=== PATIENT | male | born 1990 | race Two or more races ===

== ENCOUNTER 2017-06-23 12:44 | Emergency (ER) | payer OTHER ==
[2017-06-23 13:02] VITALS: BP 112/67; PULSE 83; TEMP 98.2; BMI 31.1
[2017-06-23] MEDS ORDERED: RANITIDINE HCL 150 MG TABLET (FP) PO ONE (13:43)
[2017-06-23] MEDS ORDERED: DEXAMETHASONE SOD PHOSPHATE 10 MG/1 ML VIAL IM ONE (13:43)
[2017-06-23] MEDS ORDERED: diphenhydrAMINE HCL 25 MG CAPSULE (FP) PO ONE ×2 (13:43→13:48)
--- NOTE | 2017-06-23 13:43 | PDOC ---
History of Present Illness - General Chief Complaint: Allergic Reaction Stated Complaint: ALLERGIC RXN Time Seen by Provider: 06/23/17 13:14 History Source: Patient Exam Limitations: No Limitations - History of Present Illness Initial Comments: CHIEF COMPLAINT: 27 y/o afebrile male with no significant PMH c/o itchy, red back s/p exposure to dirty water. HISTORY OF PRESENT ILLNESS: The patient states he was working about 3 hours ago and got splashed by dirty pond water on the back of his head and neck. He states that area immediately became itchy and his mouth started to tingle. He states since then the symptoms have improved but are still present. He denies difficulty breathing, swelling of tongue, inability to handle his own saliva. Vital signs on arrival are notable for pulse ox of 96% on RA. REVIEW OF SYSTEMS: GENERAL/CONSTITUTIONAL: No fever/chills. No weakness. No weight change. HEAD, EYES, EARS, NOSE AND THROAT: No change in vision. No ear pain or discharge. No sore throat. +tingling mouth. CARDIOVASCULAR: No chest pain or shortness of breath. RESPIRATORY: No cough, wheezing, or hemoptysis. GASTROINTESTINAL: No abd pain, nausea, vomiting, diarrhea. GENITOURINARY: No dysuria, frequency, or change in urination. MUSCULOSKELETAL: No joint or muscle swelling or pain. No neck or back pain. SKIN: +red itchy neck and back of head. NEUROLOGIC: No headache, vertigo, loss of consciousness, or loss of sensation. PHYSICAL EXAM: GENERAL: The patient is awake, alert, and fully oriented, in no acute distress. He is well appearing and ambulatory. HEAD: Normal with no signs of trauma. ENT: Pupils equal, round and reactive to light, extraocular movements intact, sclera anicteric, conjunctiva clear. No swelling to lips or tongue. No angioedema. Pt can handle his own saliva without difficulty. No posterior pharyngeal erythema or edema. Uvula midline. No soft/hard palate deformities. LUNGS: Clear to auscultation bilaterally. Normal excursion. No respiratory distress or use of accessory muscles. CV: RRR, S1/S2, no MRG. Cap refill < 2 sec. ABDOMEN: Soft, non-distended, non-tender even to deep palpation, no hepatomegaly or splenomegaly, no masses. EXTREMITIES: Normal range of motion, no edema. NEUROLOGICAL: Normal speech, normal gait. CN II-XII grossly intact. PSYCH: Normal mood, normal affect. SKIN: Back of head and neck slightly erythematous. No obvious hives or rash. Past History - Past Medical History Allergies/Adverse Reactions: Allergies Allergy/AdvReac Type Severity Reaction Status Date / Time No Known Allergies Allergy Verified 04/29/16 17:31 Home Medications: Ambulatory Orders Methylprednisolone [Medrol Dose Rayshawn] 4 mg PO ASDIR #21 tablet 06/23/17 - Psycho/Social/Smoking Cessation Hx Anxiety: No Suicidal Ideation: No Smoking History: Current some day smoker Number of Cigarettes Smoked Daily: 3 Information on smoking cessation initiated: No Hx Alcohol Use: No Drug/Substance Use Hx: No Substance Use Type: None *Physical Exam - Vital Signs Last Vital Signs Temp Pulse Resp BP Pulse Ox 98.2 F 83 18 112/67 96 06/23/17 13:00 06/23/17 13:00 06/23/17 13:00 06/23/17 13:00 06/23/17 13:00 Medical Decision Making - Medical Decision Making A/P: 27 y/o male with symptoms of allergic reaction. Plan is as follows: 1. IM decadron 2. PO zantac 3. PO benadryl 4. Reassess The patient states he feels much better after medications. Will discharge to home with rx for medrol dose pack. Suggested he take OTC claritin and zantac as well if needed. Will give work note. Instructed him to return to the ER with any worsening or concerning symptoms. The patient verbalizes understanding of all instructions, has no further questions and is awaiting discharge. *DC/Admit/Observation/Transfer Diagnosis at time of Disposition: Allergic reaction Qualifiers: Encounter type: initial encounter Qualified Code(s): T78.40XA - Allergy, unspecified, initial encounter - Discharge Dispostion Disposition: HOME Condition at time of disposition: Improved - Patient Instructions Printed Discharge Instructions: DI for General Allergic Reactions Additional Instructions: Discharge Instructions: -A prescription has been sent to your pharmacy. Please take as prescribed -Take over the counter zantac and claritin if needed as well -Return to the ER immediately with any worsening or concerning symptoms. Instrucciones de lorenzo: - Se mckeon enviado werner receta a jhaveri farmacia. Por favor tome jany prescrito -Dior sobre el contador zantac y claritin si es necesario as -Vuelva a la celena de emergencias inmediatamente con cualquier empeoramiento o s ntomas relacionados. Print Language: ICELANDIC - Post Discharge Activity Work/School Note: Back to Work
[2017-06-23] MEDS ORDERED: RANITIDINE HCL 150 MG TABLET (FP) ONE (13:47)
[2017-06-23] MEDS ORDERED: DEXAMETHASONE SOD PHOSPHATE 10 MG/1 ML VIAL ONE (13:47)
== END 2017-06-23 14:26 | disposition home or self-care (01) ==
LOC: JERFT 12:44
PROC: 3E023GC Introduction of Other Therapeutic Substance into Muscle, Percutaneous Approach (ICD-10-PCS; principal; 2017-06-23)
DX: T78.40XA Allergy, unspecified, initial encounter (principal); F17.210 Nicotine dependence, cigarettes, uncomplicated
CPT/HCPCS: 99281-25